=== PATIENT | female | born 1970 | race Caucasian/White ===

== ENCOUNTER 2019-08-01 12:25 | Emergency (ER) | payer OTHER, SELFPAY ==
[2019-08-01 12:35] VITALS: BP 119/77; PULSE 64; RESP 18; TEMP 36.6; O2SAT 100
--- NOTE | 2019-08-01 12:47 | ED.EYEPROB ---
HPI - Eye Problem General Chief complaint: Eye Problems Stated complaint: right eye pain Time Seen by Provider: 08/01/19 12:42 Source: patient and RN notes reviewed Mode of arrival: ambulatory Limitations: no limitations History of Present Illness HPI Narrative: Patient presents today complaining of pain, redness, and swelling to the right upper eyelid when she woke up this morning. Denies injury or trauma. Denies vision changes or drainage. She currently rates the pain 7/10 and has tried no [id number] interventions prior to arrival. MD chief complaint: other (Eyelid swelling and pain) Related Data Home Medications Medication Instructions Recorded Confirmed desvenlafaxine succinate mg PO 08/01/19 hydrochlorothiazide 08/01/19 levothyroxine 08/01/19 Allergies Allergy/AdvReac Type Severity Reaction Status Date / Time Sulfa (Sulfonamide Allergy Mild Hives Unverified 08/01/19 12:42 Antibiotics) Review of Systems Review of Systems: Narrative: CONSTITUTIONAL: Denies body aches, fever, chills, or sweats. EYES: Denies visual changes, redness, or discharge.+ Redness, swelling, and pain to the right upper eyelid ENT: Denies rhinorrhea, congestion, sore throat, or otalgia. CARDIOVASCULAR: Denies chest pain, palpitations, or edema. RESPIRATORY: Denies cough or dyspnea. GASTROINTESTINAL: Denies abdominal pain, nausea, vomiting, or diarrhea. GENITOURINARY: Denies dysuria or hematuria. SKIN: Denies rash, itching, or wounds. MUSCULOSKELETAL: Denies back pain, joint pain, or myalgia. NEUROLOGIC: Denies headache, numbness, tingling, or weakness. PSYCH: Denies depression or anxiety. PMFSH Comments At time of signature, I have reviewed and agree with nursing past medical, surgical, social and family history unless otherwise noted. Please see nursing chart for further information. There is no relevant family history pertinent to the presenting complaint Exam Narrative: Exam Narrative: GENERAL: Well-appearing, well-nourished, and in no acute distress. HEAD: Normocephalic, atraumatic. EYES: EOMI. PERRL. Left eye normal. Right eye with scantly injected conjunctiva. Slight swelling and redness to the right upper eyelid, medial aspect. No drainage noted. ENT: Mucous membranes pink and moist. Nares clear. No rhinorrhea. NECK: Normal AROM. Supple. No lymphadenopathy. CHEST: No respiratory distress. EXTREMITIES: Normal range of motion. No edema. SKIN: Warm, dry, no rash. NEURO: No focal deficits. Alert and oriented x3. Gait steady. PSYCH: Normal affect. No signs of depression or anxiety. Course Vital Signs Vital signs: Vital Signs Temperature 97.9 F 08/01/19 12:35 Pulse Rate 64 08/01/19 12:35 Respiratory Rate 18 08/01/19 12:35 Blood Pressure 119/77 08/01/19 12:35 Pulse Oximetry 100 08/01/19 12:35 Temperature 97.9 F 08/01/19 12:35 Pulse Rate 64 08/01/19 12:35 Respiratory Rate 18 08/01/19 12:35 Blood Pressure 119/77 08/01/19 12:35 Pulse Oximetry 100 08/01/19 12:35 Reviewed MDM - Eye Problem Differential Diagnosis Differential diagnosis: Likely conjunctivitis, periorbital cellulitis and other (Blepharitis, stye) Critical Care Time Critical Care Time Critical Care Time: No Discharge Plan Discharge Clinical Impression: External hordeolum Qualifiers: Laterality: right Eyelid: upper Qualified Code(s): H00.011 - Hordeolum externum right upper eyelid Patient Disposition: Home, Self-Care Condition: Stable Instructions: Stye (ED) Additional Instructions: Use the eyedrops for presumed stye to your right eye. Make sure you are washing your hands well to help prevent the spread of any infection. Follow-up with your doctor or eye doctor in 2 to 3 days if symptoms are not improving. Patient Language: Sami Prescriptions: New ofloxacin 0.3 % drops 1 drop RIGHTEYE QID 7 Days Qty: 5 RF: 0 No Action levothyroxine 50 mcg tablet RF: 0
== END 2019-08-01 13:00 | disposition home or self-care (01) ==
PROVIDERS: Emergency Provider Nurse Practitioner; PCP Internal Medicine
DX: H00.011 Hordeolum externum right upper eyelid (principal)
CPT/HCPCS: 99213; G0463

== ENCOUNTER 2020-05-06 06:44 | Outpatient (NON) | payer OTHER, SELFPAY ==
[2020-05-07 21:18] LABS: SARS-CoV-2 RNA PCR Negative
== END 2020-05-06 06:45 ==
PROVIDERS: PCP Internal Medicine; Visit Provider Internal Medicine
DX: R09.89 Other specified symptoms and signs involving the circulatory and respiratory systems (principal); Z20.828 Contact with and (suspected) exposure to other viral communicable diseases
CPT/HCPCS: 87635; C9803; U0003

== ENCOUNTER 2020-05-26 15:46 | Emergency (ER) | payer OTHER, SELFPAY ==
--- NOTE | ~2020-05-26 | XR_ITS ---
EXAMINATION: XR ankle LT min 3V DATE: 05/26/2020 16:00 INDICATION: Left ankle pain. Injury. TECHNIQUE: 4 views of left ankle were obtained. COMPARISON: None. FINDINGS: Bone alignment is normal. No fracture. Joint spaces are well maintained. There is an enthes ophyte at posterior aspect of calcaneal tuberosity. There is ankle soft tissue swelling. IMPRESSION: 1. No fracture. Reviewed, dictated and finalized at location A. [employer] IMPRESSION: 1. No fracture.
--- NOTE | 2020-05-26 15:50 | ED.GENADULT ---
HPI - General Adult General Chief complaint: Extremity Injury, Lower Stated complaint: L/foot injury Time Seen by Provider: 05/26/20 15:50 Source: patient Mode of arrival: ambulatory Limitations: no limitations History of Present Illness HPI narrative: 49-year-old female patient presents to the [facility] with complaints of left foot and ankle pain since yesterday. Patient states that she was walking her dog yesterday and fell off of a ledge of the sidewalk into a hole in the ground and states that she twisted her left foot and ankle. Patient states she has been having pain especially when putting weight to the left foot and ankle. Patient states she has iced it and taking Tylenol for pain. Denies any numbness or tingling. Related Data Home Medications Medication Instructions Recorded Confirmed hydrochlorothiazide 08/01/19 levothyroxine 08/01/19 albuterol sulfate 2 puff INHALATION QID PRN 05/26/20 05/26/20 duloxetine 60 mg PO DAILY 05/26/20 05/26/20 loratadine [Claritin] 10 mg PO DAILY 05/26/20 05/26/20 Allergies Allergy/AdvReac Type Severity Reaction Status Date / Time Sulfa (Sulfonamide Allergy Mild Hives Verified 05/26/20 16:03 Antibiotics) Review of Systems Review of Systems: Narrative: CONSTITUTIONAL: Denies fever, chills, or sweats. EYES: Denies visual changes, redness, or discharge. ENT: Denies rhinorrhea, congestion, sore throat, or otalgia. CARDIOVASCULAR: Denies chest pain, palpitations, or edema. RESPIRATORY: Denies cough or dyspnea. GASTROINTESTINAL: Denies abdominal pain, nausea, vomiting, or diarrhea. GENITOURINARY: Denies dysuria or hematuria. SKIN: Denies rash or itching. MUSCULOSKELETAL: Denies back pain, joint pain, or myalgia. Positive left ankle and foot pain NEUROLOGIC: Denies headache, numbness, or weakness. PSYCHIATRIC: Denies anxiety or depression. [facility] Past Medical History Medical History (Updated 05/26/20 @ 16:11 by LUCIAN Lowry) Anemia Anxiety Asthma Cerebral hemorrhage Colitis GERD (gastroesophageal reflux disease) Hypertension Migraines Mitral valve prolapse Nasal fracture Panic attack Comments At the time of my signature I agree with nursing past medical history, surgical, social, and family history. There is no relevant family history pertinent to the presenting complaint. Exam Narrative: Exam Narrative: GENERAL: Well-appearing, well-nourished, and in no acute distress. HEAD: Normocephalic, atraumatic. EYES: PERRLA and EOMI. ENT: Nares clear, no rhinorrhea or epistaxis. Mucous membranes moist. NECK: Supple. No lymphadenopathy CHEST: Clear to auscultation. No respiratory distress. HEART: Regular rate and rhythm. No murmur heard. Normal peripheral pulses. ABDOMEN: Soft, nontender, nondistended, normal active bowel sounds. EXTREMITIES: Patient is able to bear weight and ambulate has increased pain to the left ankle. The L ankle is without obvious asymmetry or deformity when compared to the R ankle. Patient can flex/extend, invert/enrique. No obvious surface trauma, ecchymosis, patient does have slight soft tissue swelling noted to the lateral side of the ankle especially over the lateral malleolus area. body tenderness to palpation over the lateral malleolus. Anterior talofibular ligament, posterior talofibular ligament, calcaneofibular ligament nontender and without swelling. No tenderness or deformity of the midfoot or over the proximal fifth metatarsal. Good DP and posterior tibial pulses and sensation to light touch normal. Talar tilt test is negative for ligament laxity to valgus or vargus stress. Negative anterior draw. Peroneal nerve is intact with strong eversion and plantar flexion. SKIN: Warm, dry, no rash. NEURO: No focal deficits. Alert and oriented x3. Course Reevaluation(s) Reevaluation #1: Reevaluated patient after x-ray resulted. Discussed with her that the ankle x-ray does not show any acute fractures. Discussed with her this is most likely a sp
[2020-05-26 15:57] VITALS: BP 140/83; PULSE 77; RESP 20; TEMP 37.1; O2SAT 100
== END 2020-05-26 16:19 | disposition home or self-care (01) ==
PROVIDERS: Emergency Provider Nurse Practitioner Family; PCP Internal Medicine
DX: S93.402A Sprain of unspecified ligament of left ankle, initial encounter (principal); X50.9XXA Other and unspecified overexertion or strenuous movements or postures, initial encounter; J45.909 Unspecified asthma, uncomplicated; K21.9 Gastro-esophageal reflux disease without esophagitis; I10 Essential (primary) hypertension; I34.1 Nonrheumatic mitral (valve) prolapse
CPT/HCPCS: 73610; 99213; G0463

== ENCOUNTER 2023-06-16 15:10 | Emergency (ER) | payer SELFPAY ==
[2023-06-16 15:59] VITALS: BP 137/84; PULSE 68; RESP 18; TEMP 36.5; O2SAT 100
--- NOTE | 2023-06-16 16:53 | ED.GENADULT ---
HPI - General Adult General Chief complaint: Back Pain/Injury Stated complaint: uti symptoms Time Seen by Provider: 06/16/23 16:40 Source: patient and RN notes reviewed Mode of arrival: ambulatory Limitations: no limitations History of Present Illness HPI narrative: Patient presents today complaining of bilateral low back pain since yesterday with radiation to the lower abdomen. Denies injury or any urinary symptoms. She has tried lidocaine patches and going to the chiropractor without relief. Currently rates her pain 03/09. Related Data Home Medications Medication Instructions Recorded Confirmed hydrochlorothiazide 12.5 mg tablet 12.5 mg PO DAILY 08/01/19 06/16/23 levothyroxine 50 mcg tablet 50 mcg PO DAILY 08/01/19 06/16/23 albuterol sulfate 90 mcg/actuation 2 puff inhalation QID PRN Wheezing 05/26/20 06/16/23 aerosol inhaler duloxetine 60 mg capsule,delayed 60 mg PO DAILY 05/26/20 06/16/23 release loratadine 10 mg tablet (Claritin) 10 mg PO DAILY 05/26/20 06/16/23 Allergies Allergy/AdvReac Type Severity Reaction Status Date / Time Sulfa (Sulfonamide Allergy Mild Hives Verified 06/16/23 16:47 Antibiotics) Review of Systems Review of Systems: CONSTITUTIONAL: Denies body aches, fever, chills, or sweats. EYES: Denies visual changes, redness, or discharge. ENT: Denies rhinorrhea, congestion, sore throat, or otalgia. CARDIOVASCULAR: Denies chest pain, palpitations, or edema. RESPIRATORY: Denies cough or dyspnea. GASTROINTESTINAL: Denies abdominal pain, nausea, vomiting, or diarrhea. GENITOURINARY: Denies dysuria or hematuria. SKIN: Denies rash, itching, or wounds. MUSCULOSKELETAL: Denies joint pain, or myalgia.+ low back pain NEUROLOGIC: Denies headache, numbness, tingling, or weakness. PSYCH: Denies depression or anxiety. [facility] Past Medical History Medical History Anemia Anxiety Asthma Cerebral hemorrhage Colitis GERD (gastroesophageal reflux disease) Hypertension Migraines Mitral valve prolapse Nasal fracture Panic attack Comments At time of signature, I have reviewed and agree with nursing past medical, surgical, social and family history unless otherwise noted. Please see nursing chart for further information. There is no relevant family history pertinent to the presenting complaint Exam Narrative: GENERAL: Well-appearing, well-nourished, and in mild pain distress. HEAD: Normocephalic, atraumatic. EYES: EOMI. No redness or drainage. Conjunctivae normal. ENT: Mucous membranes pink and moist. NECK: Normal AROM. CHEST: No respiratory distress. Clear to auscultation. HEART: Regular rate and rhythm. No murmur appreciated. Normal peripheral pulses. ABDOMEN: Soft, nondistended, normal active bowel sounds.+ mild suprapubic tenderness.-CVAT MUSCULOSKELETAL: No bony tenderness. Tenderness of the bilateral lower lumbar paraspinal muscles. EXTREMITIES: Normal range of motion. No edema. SKIN: Warm, dry, no rash. Capillary refill normal. Normal skin turgor. NEURO: No focal deficits. Alert and oriented x3. Gait steady. PSYCH: Normal affect. No signs of depression or anxiety. Course Course Level of Care: Express Care Visit Vital Signs Vital signs: Vital Signs Temperature 97.7 F 06/16/23 15:59 Pulse Rate 68 06/16/23 15:59 Respiratory Rate 18 06/16/23 15:59 Blood Pressure 137/84 06/16/23 15:59 Pulse Oximetry 100 06/16/23 15:59 Oxygen Delivery Room Air 06/16/23 15:59 Temperature 97.7 F 06/16/23 15:59 Pulse Rate 68 06/16/23 15:59 Respiratory Rate 18 06/16/23 15:59 Blood Pressure 137/84 06/16/23 15:59 Pulse Oximetry 100 06/16/23 15:59 Oxygen Delivery Room Air 06/16/23 15:59 Reviewed Medical Decision Making [facility] Narrative Medical decision making narrative: Urinalysis and exam is consistent with UTI. Will treat with Keflex. Culture pending. Anticipatory guidance giv
== END 2023-06-16 17:06 | disposition home or self-care (01) ==
PROVIDERS: Emergency Provider Nurse Practitioner; PCP Internal Medicine
DX: N30.01 Acute cystitis with hematuria (principal); I10 Essential (primary) hypertension; Z79.899 Other long term (current) drug therapy
CPT/HCPCS: 81003; 87086; 99213; G0463

== ENCOUNTER 2023-08-25 10:04 | Emergency (ER) | payer OTHER, SELFPAY ==
--- NOTE | ~2023-08-25 | XR_ITS ---
EXAMINATION: XR finger 1st RT min 2V DATE: 08/25/2023 11:21 INDICATION: Right thumb pain. TECHNIQUE: 4 views of right thumb were obtained. COMPARISON: None. FINDINGS: Bone alignment is normal. No fracture. There is mild osteoarthritis of first interphalangea l joint, first carpometacarpal joint, and first metacarpophalangeal joint. IMPRESSION: 1. Mild polyarticular osteoarthritis. Reviewed, dictated and finalized at location A. [employer]
[2023-08-25 10:44] VITALS: BP 129/85; PULSE 72; RESP 18; TEMP 36.5; O2SAT 100
--- NOTE | 2023-08-25 11:01 | ED.GENADULT ---
HPI - General Adult General Chief complaint: Extremity Injury, Upper Stated complaint: rt thumb pain Time Seen by Provider: 08/25/23 11:01 Source: patient, RN notes reviewed and old records reviewed Mode of arrival: ambulatory Limitations: no limitations History of Present Illness HPI narrative: 52 year old female presents to the [facility] with complaints of right thumb pain. Symptoms started Friday 3 days ago. Reports decreased range of motion. Decreased strength. Denies any injury. No no swelling, erythema or ecchymosis. Capillary refill under 2 seconds. Sensation intact distal to pain Related Data Home Medications Medication Instructions Recorded Confirmed hydrochlorothiazide 12.5 mg tablet 12.5 mg PO DAILY 08/01/19 08/25/23 levothyroxine 50 mcg tablet 50 mcg PO DAILY 08/01/19 08/25/23 duloxetine 60 mg capsule,delayed 60 mg PO DAILY 05/26/20 08/25/23 release loratadine 10 mg tablet (Claritin) 10 mg PO DAILY 05/26/20 08/25/23 collagen 1 X 2 misc ea miscellaneous 08/25/23 cyanocobalamin (vitamin B-12) 500 250 mcg PO DAILY 08/25/23 08/25/23 mcg tablet famotidine 20 mg tablet 20 mg PO DAILY 08/25/23 08/25/23 Allergies Allergy/AdvReac Type Severity Reaction Status Date / Time Sulfa (Sulfonamide Allergy Mild Hives Verified 08/25/23 10:54 Antibiotics) Review of Systems Review of Systems: All systems reviewed & are unremarkable except as noted in HPI and below Constitutional: Constitutional: Reports no additional constitutional complaints Eyes: Eyes: Reports no additional eye complaints ENT: Reports system reviewed and no additional complaints, except as documented Cardiovascular: Cardiovascular: Reports no additional cardiovascular complaints, Denies chest pain and Denies dyspnea Respiratory: Respiratory: Reports no additional respiratory complaints, Denies chest congestion, Denies cough and Denies dyspnea Gastrointestinal: Gastrointestinal: Reports no additional gastrointestinal complaints, Denies abdominal pain, Denies nausea and Denies vomiting Musculoskeletal: Musculoskeletal: Reports as per HPI, Reports arthralgias, Denies joint swelling and Denies numbness Integumentary/Breasts: Skin/Breast: Reports system reviewed and no additional complaints, except as docu Neurologic: Reports system reviewed and no additional complaints, except as documented Psychiatric: Psychiatric: Reports no additional psychiatric complaints Allergic/Immunologic: Allergic/Immunologic: Reports no additional allergic/immunologic complaints PMFSH Past Medical History Medical History Anemia Anxiety Asthma Cerebral hemorrhage Colitis GERD (gastroesophageal reflux disease) Hypertension Migraines Mitral valve prolapse Nasal fracture Panic attack Comments At the time of my signature, I reviewed and agree with the nursing past medical, surgical, social, and family history. There is no relevant family history pertinent to the patient complaint. Exam Const: General: cooperative, healthy appearing, comfortable, no acute distress, well developed, alert and well nourished Nutritional Appearance: well nourished Orientation/consciousness: patient oriented x3 Limitations: no limitations HENMT: Head: normal to inspection Ears: hearing grossly normal bilaterally and external ears normal Face/Nose/Sinus: Normal external nose present, Normal nares present, Normal nasal mucous membranes and turbinates present, normal facial exam and face symmetric Face and sinus: normal facial exam and face symmetric Eyes: General: appearance normal, both eyes and all related structures Alignment and Position: alignment normal Periorbital: periorbital findings normal Pupils: Equal, round and reactive pupils present EOM: EOMs intact bilaterally Neck: Neck: normal visual inspection, full ROM, no lymphadenopathy and no meningeal signs Chest: Chest palpation & inspection: normal inspec
== END 2023-08-25 11:45 | disposition home or self-care (01) ==
PROVIDERS: Emergency Provider Nurse Practitioner; PCP Internal Medicine
DX: M18.11 Unilateral primary osteoarthritis of first carpometacarpal joint, right hand (principal); M19.041 Primary osteoarthritis, right hand; J45.909 Unspecified asthma, uncomplicated; K21.9 Gastro-esophageal reflux disease without esophagitis; I10 Essential (primary) hypertension; I34.1 Nonrheumatic mitral (valve) prolapse
CPT/HCPCS: 73140; 99213; G0463